=== PATIENT | male | born 1990 | race Caucasian/White ===

== ENCOUNTER 2019-08-20 06:26 | Emergency (ER) | payer BC, OTHER ==
[2019-08-20] MEDS ORDERED: Acetaminophen/Codeine 300-30 MG Tab PO ONE (06:27)
--- NOTE | 2019-08-20 06:51 | EDM.PDOC ---
ED HPI GENERAL MEDICAL PROBLEM - General Chief Complaint: General Stated Complaint: DENTAL DRY SOCKET Time Seen by Provider: 08/20/19 06:47 Source of Information: Reports: Patient History Limitations: Reports: No Limitations - History of Present Illness INITIAL COMMENTS - FREE TEXT/NARRATIVE: Severe tooth pain ,since last Friday. Had it pulled ,was rechecked on Fri by dentist,but no treatment offered for Dry socket. Has tried OTC meds,but unable to stand the pain. dental Pain Score (Numeric/FACES): 10 - Related Data Allergies Allergy/AdvReac Type Severity Reaction Status Date / Time Penicillins Allergy Cannot Verified 08/20/19 06:44 Remember Home Meds: Home Meds NK [No Known Home Meds] 08/20/19 [History] Past Medical History - Past Health History Medical/Surgical History: Denies Medical/Surgical History ED ROS GENERAL - Review of Systems Review Of Systems: ROS reveals no pertinent complaints other than HPI. ED EXAM, GENERAL - Physical Exam Exam: See Below Free Text/Narrative:: Gum tender,lrt lower jaw. Socket red and has dried blood. No lymphadenotath. Normal oropharynx Exam Limited By: No Limitations General Appearance: Alert, WD/WN, No Apparent Distress Neck: Normal Inspection Respiratory/Chest: No Respiratory Distress Course - Vital Signs Last Recorded V/S: Last Vital Signs Temp 96.4 F 08/20/19 06:30 Pulse 50 L 08/20/19 06:30 Resp 16 08/20/19 06:30 BP 130/71 08/20/19 06:30 Pulse Ox 99 08/20/19 06:30 Departure - Departure Time of Disposition: 06:50 Disposition: Home, Self-Care 01 Condition: Good Clinical Impression: Pain, dental - Discharge Information - Problem List & Annotations (1) Pain, dental SNOMED Code(s): 71708605 Code(s): K08.89 - OTHER SPECIFIED DISORDERS OF TEETH AND SUPPORTING STRUCTURES Status: Acute - Problem List Review Problem List Initiated/Reviewed/Updated: Yes - Assessment/Plan Plan: Tylenol #3 one tid prn. Follow up with [facility].
== END 2019-08-20 06:53 | disposition home or self-care (01) ==
LOC: FB.ED 06:26
DX: K08.89 Other specified disorders of teeth and supporting structures (principal); Z88.0 Allergy status to penicillin
CPT/HCPCS: 99282; A9270-GY